=== PATIENT | female | born 1990 | race African-American/Black ===

== ENCOUNTER 2016-12-10 11:14 | Emergency (ER) | payer MEDICAID ==
[2016-12-10] MEDS ORDERED: MECLIZINE HCL 25 MG TABLET PO ONE ×2 (12:09→12:59)
--- NOTE | 2016-12-10 12:11 | ER Document Report ---
ED Medical Screen (RME) - General Chief Complaint: Dizziness Stated Complaint: EYE PROBLEM TRAVEL OUTSIDE OF THE [place] IN LAST 30 DAYS: No - HPI Patient complains to provider of: dizziness vision loss Notes: 12/10/16 12:09 Patient states chronic vision loss ongoing since August dizziness ongoing since August currently seen specialist who is requesting RPR HIV head CT Bre TB testing for possible retinal vasculitis states that she had a follow history day dizziness and symptoms have worsened the day also complaining of abdominal pain nonspecific no nausea no vomiting no fever - Related Data Allergies/Adverse Reactions: egg [Egg] Allergy (Intermediate, Verified 12/10/16 11:29) body swelling Shellfish * [Shellfish] Allergy (Verified 12/10/16 11:29) red food dye Allergy (Intermediate, Uncoded 12/10/16 11:29) body swelling string beans Allergy (Intermediate, Uncoded 12/10/16 11:29) body swelling Past Medical History Pulmonary Medical History: Reports: Hx Asthma Renal/ Medical History: Denies: Hx Peritoneal Dialysis Psychiatric Medical History: Reports: Hx Depression - psotpartum - Immunizations Immunizations up to date: Yes Hx Diphtheria, Pertussis, Tetanus Vaccination: Yes Review of Systems - Review of Systems EENT: Other - Vision loss dizziness Physical Exam - Vital signs Vitals: Temp Pulse Resp BP Pulse Ox 98.5 F 72 17 115/94 H 99 12/10/16 11:30 12/10/16 11:30 12/10/16 11:30 12/10/16 11:30 12/10/16 11:30 - HEENT Notes: Ocular motions intact pupils equal round reactive blinks to threatening motions on the right side Course - Vital Signs Vital signs: Temp Pulse Resp BP Pulse Ox 98.5 F 72 17 115/94 H 99 12/10/16 11:30 12/10/16 11:30 12/10/16 11:30 12/10/16 11:30 12/10/16 11:30
[2016-12-10 12:34] LABS: ABSOLUTE EOSINOPHILS # (AUTO) 0.2 10^3/uL (0.0-0.6); ABSOLUTE LYMPHOCYTES (AUTO) 2.3 10^3/uL (0.5-4.7); ABSOLUTE MONOCYTES (AUTO) 0.4 10^3/uL (0.1-1.4); ABSOLUTE NEUT (AUTO) 2.2 10^3/uL (1.7-8.2); BASOPHILS % (AUTO) 0.8 % (0-2); EOSINOPHILS % (AUTO) 4.1 % (0-6); HEMATOCRIT 37.4 % (36.0-47.0); HEMOGLOBIN 12.4 g/dL (12.0-15.5); HGB HCT DIFFERENCE -0.2; LYMPHOCYTES % (AUTO) 44.2 % (13-45); MEAN CORPUSCULAR HEMOGLOBIN 25.5 pg (27.0-33.4); MEAN CORPUSCULAR VOLUME 77 fl (80-97); MONOCYTES % (AUTO) 8.1 % (3-13); RED BLOOD COUNT 4.84 10^6/uL (3.72-5.28); RED CELL DISTRIBUTION WIDTH 15.5 % (11.5-14.0); SEGMENTED NEUTROPHILS % (AUTO) 42.8 % (42-78); WHITE BLOOD COUNT 5.2 10^3/uL (4.0-10.5)
[2016-12-10 12:56] LABS: ANION GAP 12 (5-19); BLOOD UREA NITROGEN 10 mg/dL (7-20); CALCIUM 9.9 mg/dL (8.4-10.2); CARBON DIOXIDE 26 mmol/L (22-30); CHLORIDE 105 mmol/L (98-107); CREATININE RESULT 0.74 mg/dL (0.52-1.25); GLUCOSE 84 mg/dL (75-110); MAGNESIUM 1.8 mg/dL (1.6-2.3); POTASSIUM 4.4 mmol/L (3.6-5.0); SODIUM 142.9 mmol/L (137-145)
--- NOTE | 2016-12-10 12:58 | ER Document Report ---
ED Dizziness/Weakness - General Time seen by provider: 12:50 Mode of Arrival: Ambulatory Information source: Patient TRAVEL OUTSIDE OF THE [place] IN LAST 30 DAYS: No - HPI Patient complains to provider of: Dizziness, Near-syncope Onset: Other - see HPI note Quality of pain: No pain Associated symptoms: Dizzy, Almost fainted, Nausea Exacerbated by: Change in position, Movement of head Baseline gait: Walks w/o assistance <SANDIP DE LEON - Last Filed: 12/10/16 13:12> <KAMILA RUIZ - Last Filed: 12/10/16 14:22> - General Chief Complaint: Dizziness Stated Complaint: EYE PROBLEM Notes: Patient is a 26 year old female presenting to the ED for dizziness, nausea, and feeling unbalanced. Patient has had these symptoms for the past 2 days. Patient has increased dizziness and room spinning sensation with movement of her head. Patient states she has fallen x2 and is leaning to the right when she walks. Patient has not experienced these symptoms before. Patient has had some chronic vision loss in her right eye that is being diagnosed and and evaluated at [place] with Dr. Edge. Patient has no medication allergies. (SANDIP DE LEON ) - Related Data Allergies/Adverse Reactions: egg [Egg] Allergy (Intermediate, Verified 12/10/16 11:29) body swelling Shellfish * [Shellfish] Allergy (Verified 12/10/16 11:29) red food dye Allergy (Intermediate, Uncoded 12/10/16 11:29) body swelling string beans Allergy (Intermediate, Uncoded 12/10/16 11:29) body swelling Past Medical History - General Information source: Patient - Social History Smoking Status: Never Smoker Cigarette use (# per day): No Frequency of alcohol use: None Drug Abuse: None Family History: Reviewed & Not Pertinent, DM, Malignancy Patient has suicidal ideation: No Patient has homicidal ideation: No Pulmonary Medical History: Reports: Hx Asthma EENT Medical History: Reports: Eyes - vision loss right eye Neurological Medical History: Reports: Hx Migraine Psychiatric Medical History: Reports: Hx Depression - Surgical Hx: Negative - Immunizations Immunizations up to date: Yes Hx Diphtheria, Pertussis, Tetanus Vaccination: Yes <SANDIP DE LEON - Last Filed: 12/10/16 13:12> Review of Systems - Review of Systems Constitutional: No symptoms reported EENT: No symptoms reported Cardiovascular: See HPI, Dizziness Respiratory: No symptoms reported Gastrointestinal: See HPI, Nausea Genitourinary: No symptoms reported Female Genitourinary: No symptoms reported Musculoskeletal: No symptoms reported Skin: No symptoms reported Hematologic/Lymphatic: No symptoms reported Neurological/Psychological: No symptoms reported -: Yes All other systems reviewed and negative <SANDIP DE LEON - Last Filed: 12/10/16 13:12> Physical Exam - Vital signs Interpretation: Normal - General General appearance: Appears well, Alert In distress: Mild - HEENT Head: Normocephalic, Atraumatic Eyes: Normal Conjunctiva: Normal Cornea: Normal Extraocular movements intact: Yes - lateral gaze nystagmus Eyelashes: Normal Pupils: PERRL Mucous membranes: Moist - Respiratory Respiratory status: No respiratory distress Chest status: Nontender - Cardiovascular Rhythm: Regular - Abdominal Inspection: Obese - Back Back: Normal, Nontender - Extremities General upper extremity: Normal inspection, Normal ROM, Normal strength General lower extremity: Normal inspection, Normal ROM, Normal strength. No: Edema - Neurological Neuro grossly intact: Yes Cognition: Normal Orientation: AAOx4 Jacob Coma Scale Eye Opening: Spontaneous [place] Coma Scale Verbal: Oriented Jacob Coma Scale Motor: Obeys Commands [place] Coma Scale Total: 15 Speech: Normal - Psychological Associated symptoms: Normal affect, Normal mood - Skin Skin Temperature: Warm Skin Moisture: Dry <SANDIP DE LEON - Last Filed: 12/10/16 13:12> <KAMILA RUIZ - Last Filed: 12/10/16 14:22> - Vital signs Vitals: Temp Pulse Resp BP Pulse Ox 98.5 F 72 17 115/94 H 99 12/10/16 11:30 12/10/16 11:30 12/10/16 11:30 12/10/16 11:30 12/10/16 11:30 Course - Laboratory Result Diagrams: 12/10/16 12:15 12/10/16 12:15 <LESATRICIASANDIP - Last Filed: 12/10/16 13:12> - Laboratory Result Diagrams: 12/10/16 12:15 12/10/16 12:15 - Diagnostic Test Radiology reviewed: Reports reviewed - CT of the head is read as normal - EKG Interpretation by Ne EKG shows normal: Sinus rhythm, [place], Intervals, QRS Complexes. abnormal: ST-T Waves - Borderline anterior T abnormalities Rate: Normal - 67 Rhythm: NSR <KAMILA RUIZ - Last Filed: 12/10/16 14:22> - Vital Signs Vital signs: Temp Pulse Resp BP Pulse Ox 98.5 F 72 17 115/94 H 99 12/10/16 11:30 12/10/16 11:30 12/10/16 11:30 12/10/16 11:30 12/10/16 11:30 - Laboratory Laboratory results interpreted by me: 12/10/16 12:15 MCV 77 L MCH 25.5 L RDW 15.5 H Discharge <SANDIP DE LEON - Last Filed: 12/10/16 13:12> <KAMILA RUIZ - Last Filed: 12/10/16 14:22> - Discharge Clinical Impression: Vertigo Condition: Stable Disposition: HOME, SELF-CARE Additional Instructions: Vertigo: You have experienced an episode of vertigo -- a whirling dizziness which may be accompanied by nausea and vomiting or staggering. Vertigo is often caused by an irritation of the inner ear, in which case it is called labyrinthitis. It can also be a symptom of a degenerating inner ear, nerve damage, or brain injury. Your physician has evaluated you to determine whether any further testing is necessary. Vertigo is often treated with dramamine or meclizine. These medications are helpful, but stronger medication may be needed if you are vomiting. Rest in bed. You should not drive or operate machinery until completely better. It may take one to three weeks for recovery. If there are new symptoms, such as decreased hearing or vision, severe headache, weakness or faintness, or confusion, call the physician. FOLLOW UP WITH YOUR DOCTOR IF NOT IMPROVING. Prescriptions: Meclizine HCl [Antivert 25 mg Tablet] 25 mg PO TID PRN #25 tablet PRN Reason: Scribe Attestation: 12/10/16 14:22 I personally performed the services described in the documentation, reviewed and edited the documentation which was dictated to the scribe in my presence, and it accurately records my words and actions. (KAMILA RUIZ) Scribe Documentation - Scribe Written by Scrmargi:: Sandip De Leon 12/10/16 13:10 acting as scribe for :: Ketan <SANDIP DE LEON - Last Filed: 12/10/16 13:12>
[2016-12-10 13:36] LABS: ADD ON TESTING BLD IN LAB ACKNOWLEDGE
[2016-12-10 13:50] LABS: APPEARANCE,URINE CLEAR; BILIRUBIN,URINE NEGATIVE (NEGATIVE); GLUCOSE, URINE NEGATIVE (NEGATIVE); KETONES,URINE NEGATIVE (NEGATIVE); LEUKOCYTE ESTERASE,URINE NEGATIVE (NEGATIVE); NITRITE,URINE NEGATIVE (NEGATIVE); PROTEIN,URINE NEGATIVE (NEGATIVE); URINE SPECIFIC GRAVITY 1.021; UROBILINOGEN,URINE NEGATIVE mg/dL (<2.0)
[2016-12-10 13:57] LABS: C-REACTIVE PROTEIN < 5.0 mg/L (<10.0)
[2016-12-10 15:18] LABS: URINE BARBITURATES SCREEN NEGATIVE; URINE METHADONE SCREEN NEGATIVE; URINE OPIATES LOW NEGATIVE; URINE PHENCYCLIDINE SCREEN NEGATIVE
[2016-12-10 16:03] VITALS: BP 116/80
--- NOTE | 2016-12-10 21:15 | EKG REPORT ---
SEVERITY:- BORDERLINE ECG - SINUS RHYTHM BORDERLINE T ABNORMALITIES, ANTERIOR LEADS : Confirmed by: Sharmaine Phelan MD 10-Dec-2016 21:14:17
== END 2016-12-10 14:30 | disposition home or self-care (01) ==
LOC: ER 11:14
DX: R42 Dizziness and giddiness (principal); R11.0 Nausea
CPT/HCPCS: 36415; 70450; 80048; 80307; 81001; 83735; 84702; 85025; 86140; 93005; 93010; 99284

== ENCOUNTER 2017-03-23 23:24 | Emergency (ER) | payer SELFPAY ==
[2017-03-23] MEDS ORDERED: ONDANSETRON HCL INJ/PF 4 MG/2 ML SDV IV ONE (23:40)
[2017-03-23] MEDS ORDERED: NORMAL SALINE 1000 ML 1,000 ML IV ONE (23:40)
[2017-03-24 00:23] LABS: ABSOLUTE BASOPHILS # (AUTO) 0.1 10^3/uL (0.0-0.2); ABSOLUTE EOSINOPHILS # (AUTO) 0.3 10^3/uL (0.0-0.6); ABSOLUTE MONOCYTES (AUTO) 0.6 10^3/uL (0.1-1.4); ABSOLUTE NEUT (AUTO) 3.2 10^3/uL (1.7-8.2); BASOPHILS % (AUTO) 0.9 % (0-2); EOSINOPHILS % (AUTO) 4.3 % (0-6); HEMATOCRIT 38.7 % (36.0-47.0); HEMOGLOBIN 12.6 g/dL (12.0-15.5); HGB HCT DIFFERENCE -0.9; LYMPHOCYTES % (AUTO) 41.6 % (13-45); MEAN CORPUSCULAR HEMOGLOBIN 25.3 pg (27.0-33.4); MEAN CORPUSCULAR HGB CONC 32.5 g/dL (32.0-36.0); MEAN CORPUSCULAR VOLUME 78 fl (80-97); MONOCYTES % (AUTO) 8.9 % (3-13); RED BLOOD COUNT 4.99 10^6/uL (3.72-5.28); SEGMENTED NEUTROPHILS % (AUTO) 44.3 % (42-78); WHITE BLOOD COUNT 7.2 10^3/uL (4.0-10.5)
[2017-03-24 00:26] LABS: APPEARANCE,URINE SLIGHTLY-CLOUDY; BILIRUBIN,URINE NEGATIVE (NEGATIVE); GLUCOSE, URINE NEGATIVE (NEGATIVE); KETONES,URINE NEGATIVE (NEGATIVE); LEUKOCYTE ESTERASE,URINE NEGATIVE (NEGATIVE); NITRITE,URINE NEGATIVE (NEGATIVE); PROTEIN,URINE NEGATIVE (NEGATIVE); URINE SPECIFIC GRAVITY 1.035; UROBILINOGEN,URINE NEGATIVE mg/dL (<2.0)
[2017-03-24 01:19] LABS: ALANINE AMINOTRANSFERASE 22 U/L (9-52); ALBUMIN 4.2 g/dL (3.5-5.0); ALKALINE PHOSPHATASE 65 U/L (38-126); ANION GAP 11 (5-19); ASPARTATE AMINO TRANSFERASE 16 U/L (14-36); BILIRUBIN,DIRECT 0.3 mg/dL (0.0-0.4); BILIRUBIN,TOTAL 0.4 mg/dL (0.2-1.3); BLOOD UREA NITROGEN 12 mg/dL (7-20); CALCIUM 9.1 mg/dL (8.4-10.2); CARBON DIOXIDE 24 mmol/L (22-30); CHLORIDE 108 mmol/L (98-107); CREATININE RESULT 1.01 mg/dL (0.52-1.25); GLUCOSE 73 mg/dL (75-110); POTASSIUM 3.7 mmol/L (3.6-5.0); SODIUM 143.2 mmol/L (137-145); TOTAL PROTEIN 7.6 g/dL (6.3-8.2)
--- NOTE | 2017-03-24 01:25 | ER Document Report ---
ED General - General Chief Complaint: Abdominal Pain Stated Complaint: VOMITING,DIARRHEA,ABDOMINAL PAIN Time Seen by Provider: 03/23/17 23:39 Notes: Patient is a 26-year-old female without past medical history who presents with multiple complaints. Her main concern is external vaginal irritation which she describes as a constant, burning pain that has been present for the past 2 days. States this started after she began using a new type of tampon during her most recent menstrual period and believes that this has triggered the symptoms. She also notes that she has had some intermittent abdominal cramping with associated diarrhea and vomiting that has now resolved. Patient has been able to tolerate oral intake today without difficulty. Denies a history of similar symptoms in the past. She has not seen her primary care doctor regarding today's concerns. TRAVEL OUTSIDE OF THE [place] IN LAST 30 DAYS: No - Related Data Allergies/Adverse Reactions: egg [Egg] Allergy (Intermediate, Verified 12/10/16 11:29) body swelling Shellfish * [Shellfish] Allergy (Verified 12/10/16 11:29) red food dye Allergy (Intermediate, Uncoded 12/10/16 11:29) body swelling string beans Allergy (Intermediate, Uncoded 12/10/16 11:29) body swelling Past Medical History - General Information source: Patient - Social History Smoking Status: Never Smoker Chew tobacco use (# tins/day): No Frequency of alcohol use: None Drug Abuse: None Lives with: Spouse/Significant other Family History: Reviewed & Not Pertinent, DM, Malignancy Patient has suicidal ideation: No Patient has homicidal ideation: No Pulmonary Medical History: Reports: Hx Asthma Neurological Medical History: Reports: Hx Migraine Renal/ Medical History: Denies: Hx Peritoneal Dialysis Psychiatric Medical History: Reports: Hx Depression - Past Surgical History: Reports: Hx Gynecologic Surgery - mirena removal - Immunizations Immunizations up to date: Yes Hx Diphtheria, Pertussis, Tetanus Vaccination: Yes Review of Systems - Review of Systems Notes: Constitutional: Negative for fever. HENT: Negative for sore throat. Eyes: Negative for visual changes. Cardiovascular: Negative for chest pain. Respiratory: Negative for shortness of breath. Gastrointestinal: Negative for abdominal pain, positive for vomiting and diarrhea now resolved Genitourinary: Negative for dysuria. Positive for vaginal irritation Musculoskeletal: Negative for back pain. Skin: Negative for rash. Neurological: Negative for headaches, weakness or numbness. 10 point ROS negative except as marked above and in HPI. Physical Exam - Vital signs Vitals: Temp Pulse Resp BP Pulse Ox 98.1 F 74 18 124/81 100 03/23/17 23:29 03/23/17 23:29 03/23/17 23:29 03/23/17 23:29 03/23/17 23:29 Interpretation: Normal Notes: PHYSICAL EXAMINATION: GENERAL: Well-appearing, well-nourished and in no acute distress. HEAD: Atraumatic, normocephalic. EYES: Pupils equal round and reactive to light, extraocular movements intact, sclera anicteric, conjunctiva are normal. ENT: nares patent, oropharynx clear without exudates. Moist mucous membranes. NECK: Normal range of motion, supple without lymphadenopathy LUNGS: Breath sounds clear to auscultation bilaterally and equal. No wheezes rales or rhonchi. HEART: Regular rate and rhythm without murmurs ABDOMEN: Soft, nontender, normoactive bowel sounds. No guarding, no rebound. No masses appreciated. : External vaginal exam reveals no significant erythema, discharge or bleeding. EXTREMITIES: Normal range of motion, no pitting or edema. No cyanosis. NEUROLOGICAL: No focal neurological deficits. Moves all extremities spontaneously and on command. PSYCH: Normal mood, normal affect. SKIN: Warm, Dry, normal turgor, no rashes or lesions noted. Course - Re-evaluation Re-evalutation: 03/24/17 01:23 Patient is complaining of vaginal irritation, external vaginal exam does not show any evidence of infection, erythema, and patient is declining formal pelvic exam which I think is appropriate given that her only complaint is mild external vaginal irritation. I suspect contact irritation from tampons that patient had been using during her menstrual cycle. Patient also complained of some nausea, vomiting and diarrhea that has now resolved and she has been able to tolerate oral intake for the past 24 hours without difficulty. She has absolutely no focal abdominal tenderness, rebound or guarding and her history does not suggest acute biliary pathology, pancreatitis, appendicitis, or acute ovarian torsion. No history suggesting obstruction or perforation. Patient was laughing and joking during exam. Laboratories are unremarkable. At this time I do not suspect any acute life-threatening pathology. At this time will discharge with return precautions and follow-up recommendations. Verbal discharge instructions given a the bedside and opportunity for questions given. Medication warnings reviewed. Patient is in agreement with this plan and has verbalized understanding of return precautions and the need for primary care follow-up in the next 24-72 hours. - Vital Signs Vital signs: Temp Pulse Resp BP Pulse Ox 98.1 F 74 18 124/81 100 03/23/17 23:29 03/23/17 23:29 03/23/17 23:29 03/23/17 23:29 03/23/17 23:29 - Laboratory Result Diagrams: 03/24/17 00:11 03/24/17 00:53 Laboratory results interpreted by me: 03/24/17 03/24/17 00:11 00:53 MCV 78 L MCH 25.3 L RDW 16.0 H Chloride 108 H Glucose 73 L Discharge - Discharge Clinical Impression: Vaginal irritation, Vomiting and diarrhea Condition: Good Disposition: HOME, SELF-CARE Additional Instructions: Your labs today are normal. The irritation to your vagina appears to be likely related to the tampons are using and should resolve in the next several days. Return for any additional concerns you may have.
[2017-03-24 01:42] VITALS: BP 108/68
== END 2017-03-24 01:43 | disposition home or self-care (01) ==
LOC: ER 23:24
DX: N76.0 Acute vaginitis (principal); R11.10 Vomiting, unspecified; R19.7 Diarrhea, unspecified; R10.9 Unspecified abdominal pain; Z91.012 Allergy to eggs; Z91.02 Food additives allergy status; Z91.013 Allergy to seafood; Z91.018 Allergy to other foods
CPT/HCPCS: 99284; 96361; 96374; 36415; 84703; 85025; 80053; 81001; J2405; J7030

== ENCOUNTER 2017-05-28 12:42 | Emergency (ER) | payer SELFPAY ==
[2017-05-28] MEDS ORDERED: MORPHINE SULFATE 10 MG/ML INJ IV ONE (12:58)
--- NOTE | 2017-05-28 13:08 | ER Document Report ---
ED Fall - General Stated Complaint: FALL BACK PAIN Time Seen by Provider: 05/28/17 12:58 Information source: Patient, Emergency Med Personnel Notes: Patient is a 26-year-old female that presents via EMS secondary to increased back pain causing her to fall backwards onto her back. Patient states she is a 7 year history of intermittent back pain. She states at times it "freezes up". Patient is on Flexeril for this pain. She has never seen a back specialist orthopedic surgeon. Patient denies any head trauma when she fell, neck pain, loss of consciousness. She denies any recent weakness of her legs no incontinence of urine. She denies any fevers or abdominal pain. She does state that the pain at baseline radiates down both of her legs. TRAVEL OUTSIDE OF THE [place] IN LAST 30 DAYS: No - HPI Occurred: Just prior to arrival Where: Home Context: Fell from standing Associated symptoms: None. denies: Lost consciousness, Dazed/confused Location of injury/pain: Back Quality of pain: [place] Severity: Moderate Pain Level: 3 Prehospital interventions: No: C-collar, Backboard - Related data Allergies/Adverse Reactions: egg [Egg] Allergy (Intermediate, Verified 12/10/16 11:29) body swelling Shellfish * [Shellfish] Allergy (Verified 12/10/16 11:29) red food dye Allergy (Intermediate, Uncoded 12/10/16 11:29) body swelling string beans Allergy (Intermediate, Uncoded 12/10/16 11:29) body swelling Home Medications: Current Home Medications Cyclobenzaprine HCl [Flexeril 10 mg Tablet] 10 mg PO TID 05/28/17 [History] Past Medical History - General Information source: Patient - Social History Smoking Status: Unknown if Ever Smoked Cigarette use (# per day): No Chew tobacco use (# tins/day): No Smoking Education Provided: No Frequency of alcohol use: None Drug Abuse: None Family History: Reviewed & Not Pertinent, DM, Malignancy Pulmonary Medical History: Reports: Hx Asthma Neurological Medical History: Reports: Hx Migraine Renal/ Medical History: Denies: Hx Peritoneal Dialysis Psychiatric Medical History: Reports: Hx Depression - Past Surgical History: Reports: Hx Gynecologic Surgery - mirena removal - Immunizations Immunizations up to date: Yes Hx Diphtheria, Pertussis, Tetanus Vaccination: Yes Review of Systems - Review of Systems Constitutional: denies: Fever Cardiovascular: denies: Chest pain, Palpitations Respiratory: denies: Short of breath Gastrointestinal: denies: Vomiting Musculoskeletal: denies: Leg swelling Neurological/Psychological: Other - no slurred speech. denies: Confusion, Weakness, Gait changes, Loss of power -: Yes All other systems reviewed and negative Physical Exam - Vital signs Vitals: Temp Pulse Resp BP Pulse Ox 97.9 F 72 16 120/75 96 05/28/17 12:51 05/28/17 12:51 05/28/17 12:51 05/28/17 12:51 05/28/17 12:51 Notes: Reviewed vital signs and nursing note as charted by RN. CONSTITUTIONAL: Alert and oriented and responds appropriately to questions. Well -appearing; well-nourished HEAD: Normocephalic; atraumatic EYES: PERRL NECK: Supple without meningismus; non-tender CARD: Regular rate and rhythm; no murmurs RESP: Normal chest excursion without splinting or tachypnea; breath sounds clear and equal bilaterally ABD/GI: Normal bowel sounds; non-distended; soft, non-tender BACK: The back appears normal. Tenderness to palpation along the midline lumbar spine as well as the paraspinal muscular regions. There is no swelling or step-offs noted EXT: Normal ROM in all joints; non-tender to palpation; no cyanosis, no effusions, no edema SKIN: Normal color for age and race; warm; dry; good turgor NEURO: CN II through XII are intact; moves all extremities equally; patient has 5 out of 5 bilateral plantar extension foot flexion. Positive straight leg test bilaterally. 2 plus patellar reflexes bilaterally PSYCH: The patient's mood and manner are appropriate. Grooming and personal hygiene are appropriate. Course - Re-evaluation Re-evalutation: 05/28/17 13:08 Given the above history and physical examination, status post fall, I will obtain x-ray imaging of the lumbar spine. Patient states that she is not and is willing to sign a documentation that the x-ray performed without test prior to the imaging. Given the normal reflexes, history of chronic back pain, no weakness or numbness reported by the patient either subjectively or objectively, no incontinence, no signs or symptoms of spinal infection, I believe acute cord compression to be unlikely. 05/28/17 15:02 X-rays recorded. I spoke to the radiologist he states he cannot completely rule out a coccyx fracture given the location, I do not believe further imaging is necessary at this time. I will provide pain medications and strict return precautions and follow-up with orthopedics. - Vital Signs Vital signs: Temp Pulse Resp BP Pulse Ox 97.9 F 72 16 120/75 96 05/28/17 12:51 05/28/17 12:51 05/28/17 12:51 05/28/17 12:51 05/28/17 12:51 Discharge - Discharge Clinical Impression: Accidental fall Qualifiers: Encounter type: initial encounter Qualified Code(s): W19.XXXA - Unspecified fall, initial encounter Lumbar back pain Qualifiers: Chronicity: acute Back pain laterality: unspecified Sciatica presence: with sciatica Sciatica laterality: bilateral sciatica Qualified Code(s): M54.42 - Lumbago with sciatica, left side; M54.41 - Lumbago with sciatica, right side Condition: Good Disposition: HOME, SELF-CARE Additional Instructions: Comeback immediately for any weakness or numbness of the legs, incontinence of stool or urine, fevers, or any other acute problems. Please follow-up with orthopedics as we have discussed and provided for you. Prescriptions: Hydrocodone/Acetaminophen [[place] 5-325 Tablet] 1 each PO Q6 PRN #12 tablet PRN Reason: For Pain Referrals: KEVIN DELVALLE FNP-C [Primary Care Provider] - Follow up as needed DANIELA CARBONE DO [ACTIVE STAFF] - Follow up as needed
--- NOTE | 2017-05-28 14:54 | RADIOLOGY REPORT (SQ) ---
EXAM DESCRIPTION: L SPINE WHOLE COMPLETED DATE/TIME: 05/28/2017 2:45 pm REASON FOR STUDY: 13hw, s/p fall COMPARISON: None. NUMBER OF VIEWS: Five views including obliques. TECHNIQUE: AP, lateral, oblique, and sacral radiographic images acquired of the lumbar spine. LIMITATIONS: None. FINDINGS: MINERALIZATION: Normal. SEGMENTATION: Normal. No transitional anatomy. ALIGNMENT: Normal. VERTEBRAE: Maintained height. No fracture or worrisome bone lesion. DISCS: Preserved height. No significant osteophytes or end plate irregularity. POSTERIOR ELEMENTS: Pedicles and facets are intact. No pars defect or posterior arch defects. HARDWARE: None in the spine. PARASPINAL SOFT TISSUES: Normal. PELVIS: Intact as visualized. No fractures or worrisome bone lesions. SI joints intact. OTHER: On the lateral sacral image there is posterior displacement of the lower coccygeal segments. IMPRESSION: NORMAL 5 VIEW LUMBAR SPINE. POSTERIOR DISPLACEMENT OF THE LOWER COCCYGEAL SEGMENTS. UNKNOWN IF THIS IS A CHRONIC FINDING OR COUL D BE RELATED TO ACUTE INJURY. TECHNICAL DOCUMENTATION: JOB ID: [id number] [employer]- All Rights Reserved
[2017-05-28 15:49] VITALS: BP 122/80
== END 2017-05-28 15:41 | disposition home or self-care (01) ==
LOC: ER 12:42
DX: M54.41 Lumbago with sciatica, right side (principal); M54.42 Lumbago with sciatica, left side; W19.XXXA Unspecified fall, initial encounter; Y93.89 Activity, other specified; Y92.009 Unspecified place in unspecified non-institutional (private) residence as the place of occurrence of the external cause; J45.909 Unspecified asthma, uncomplicated; Z79.899 Other long term (current) drug therapy; Z91.012 Allergy to eggs; Z91.013 Allergy to seafood; Z91.018 Allergy to other foods
CPT/HCPCS: 99283; 96374; 72110; J2270

== ENCOUNTER 2018-08-23 22:53 | Emergency (ER) | payer SELFPAY ==
[2018-08-23 23:33] LABS: HEMATOCRIT 40.2 % (36.0-47.0); HEMOGLOBIN 13.2 g/dL (12.0-15.5); MEAN CORPUSCULAR HEMOGLOBIN 26.2 pg (27.0-33.4); MEAN CORPUSCULAR HGB CONC 32.8 g/dL (32.0-36.0); MEAN CORPUSCULAR VOLUME 80 fl (80-97); PLATELET COUNT 277 10^3/uL (150-450); RED BLOOD COUNT 5.04 10^6/uL (3.72-5.28); RED CELL DISTRIBUTION WIDTH 15.2 % (11.5-14.0)
[2018-08-23 23:44] LABS: RBCS (WET MOUNT) NO RBCS SEEN; T.VAGINALIS (WET MOUNT) NO TRICHOMONAS SEEN; WBCS (WET MOUNT) FEW WBCS SEEN; YEAST (WET MOUNT) NO YEAST SEEN
[2018-08-23 23:47] LABS: ANION GAP 6 (5-19); BLOOD UREA NITROGEN 10 mg/dL (7-20); CALCIUM 9.5 mg/dL (8.4-10.2); CARBON DIOXIDE 28 mmol/L (22-30); CHLORIDE 106 mmol/L (98-107); GLUCOSE 85 mg/dL (75-110); POTASSIUM 4.2 mmol/L (3.6-5.0); SODIUM 139.6 mmol/L (137-145)
[2018-08-23 23:48] LABS: APPEARANCE,URINE SLIGHTLY-CLOUDY; BILIRUBIN,URINE NEGATIVE (NEGATIVE); COLOR,URINE YELLOW; GLUCOSE, URINE NEGATIVE (NEGATIVE); KETONES,URINE TRACE mg/dL (NEGATIVE); LEUKOCYTE ESTERASE,URINE NEGATIVE (NEGATIVE); NITRITE,URINE NEGATIVE (NEGATIVE); PROTEIN,URINE NEGATIVE (NEGATIVE); URINE SPECIFIC GRAVITY 1.032
--- NOTE | 2018-08-24 00:43 | ER Document Report ---
ED General - General Chief Complaint: Vaginal Bleeding Stated Complaint: VAGINAL BLEEDING Time Seen by Provider: 08/23/18 23:11 Notes: Patient is a 27-year-old female without chronic medical problems who presents with several days of skin irritation around her external vagina. The patient is reportedly concerned about the possibility that her ex- could have had transmitted HPV or an alternative sexually transmitted infection. She describes the area as having a burning, stinging, constant irritation. She states that it is been there for at least several weeks but has become more irritated and began bleeding in the past several days. She has not seen her primary care doctor regarding today's concerns. She has not trying to try to improve her symptoms. She is uncertain if anything seems to worsen her symptoms. She denies dysuria, fever or constitutional symptoms. TRAVEL OUTSIDE OF THE [place] IN LAST 30 DAYS: No - Related Data Allergies/Adverse Reactions: egg [Egg] Allergy (Intermediate, Verified 12/10/16 11:29) body swelling Shellfish * [Shellfish] Allergy (Verified 12/10/16 11:29) red food dye Allergy (Intermediate, Uncoded 12/10/16 11:29) body swelling string beans Allergy (Intermediate, Uncoded 12/10/16 11:29) body swelling Past Medical History - General Information source: Patient - Social History Smoking Status: Never Smoker Chew tobacco use (# tins/day): No Frequency of alcohol use: None Drug Abuse: None Lives with: Family Family History: Reviewed & Not Pertinent, DM, Malignancy Patient has suicidal ideation: No Patient has homicidal ideation: No Pulmonary Medical History: Reports: Hx Asthma Neurological Medical History: Reports: Hx Migraine Renal/ Medical History: Denies: Hx Peritoneal Dialysis Psychiatric Medical History: Reports: Hx Depression - Past Surgical History: Reports: Hx Gynecologic Surgery - mirena removal - Immunizations Immunizations up to date: Yes Hx Diphtheria, Pertussis, Tetanus Vaccination: Yes Review of Systems - Review of Systems Notes: Constitutional: Negative for fever. HENT: Negative for sore throat. Eyes: Negative for visual changes. Cardiovascular: Negative for chest pain. Respiratory: Negative for shortness of breath. Gastrointestinal: Negative for abdominal pain, vomiting or diarrhea. Genitourinary: Positive for external vaginal irritation Musculoskeletal: Negative for back pain. Skin: Negative for rash. Neurological: Negative for headaches, weakness or numbness. 10 point ROS negative except as marked above and in HPI. Physical Exam - Vital signs Vitals: Temp Pulse Resp BP Pulse Ox 98 F 94 16 127/81 H 98 08/23/18 22:54 08/23/18 22:54 08/23/18 22:54 08/23/18 22:54 08/23/18 22:54 Interpretation: Normal Notes: PHYSICAL EXAMINATION: GENERAL: Well-appearing, well-nourished and in no acute distress. HEAD: Atraumatic, normocephalic. EYES: Pupils equal round and reactive to light, extraocular movements intact, sclera anicteric, conjunctiva are normal. ENT: nares patent, oropharynx clear without exudates. Moist mucous membranes. NECK: Normal range of motion, supple without lymphadenopathy LUNGS: Breath sounds clear to auscultation bilaterally and equal. No wheezes rales or rhonchi. HEART: Regular rate and rhythm without murmurs ABDOMEN: Soft, nontender, normoactive bowel sounds. No guarding, no rebound. No masses appreciated. : There are several raised papules below the level of the inferior aspect of the external vaginal canal EXTREMITIES: Normal range of motion, no pitting or edema. No cyanosis. NEUROLOGICAL: No focal neurological deficits. Moves all extremities spontaneously and on command. PSYCH: Normal mood, normal affect. SKIN: Warm, Dry, normal turgor, no rashes or lesions noted. Course - Re-evaluation Re-evalutation: 08/24/18 03:41 Presentation appears most consistent with minor skin irritation just below the level of the vagina. Not consistent with herpetic or HPV lesions. Labs and STI testing are otherwise unremarkable. I have advised the patient on barrier creams and usage of loose fitting clothing. At this time will discharge with return precautions and follow-up recommendations. Verbal discharge instructions given a the bedside and opportunity for questions given. Medication warnings reviewed. Patient is in agreement with this plan and has verbalized understanding of return precautions and the need for primary care follow-up in the next 24-72 hours. - Vital Signs Vital signs: Temp Pulse Resp BP Pulse Ox 97.8 F 84 16 113/78 99 08/24/18 01:09 08/24/18 01:09 08/24/18 01:09 08/24/18 01:09 08/24/18 01:09 - Laboratory Result Diagrams: 08/23/18 23:20 08/23/18 23:20 Laboratory results interpreted by me: 08/23/18 08/23/18 23:20 23:26 MCH 26.2 L RDW 15.2 H Urine Ketones TRACE H Urine Urobilinogen 2.0 H Discharge - Discharge Clinical Impression: Perineal discomfort in female, Skin irritation Condition: Good Disposition: HOME, SELF-CARE Additional Instructions: You should cover the affected area with a barrier cream such as zinc oxide or petroleum to prevent further irritation. Your labs and exam are otherwise normal and do not suggest a sexually transmitted infection currently. Return for any additional concerns he may have including spreading redness from the area, worsening pain, fever greater than 100.4 F, or any other symptoms that are worrisome to you. Referrals: KEVIN DELVALLE, [facility] [Primary Care Provider] - Follow up as needed
[2018-08-24 01:09] LABS: CHLAM PCR NOT DETECTED (NOT DETECT); GON PCR NOT DETECTED (NOT DETECT)
[2018-08-24 01:11] VITALS: BP 113/78
== END 2018-08-24 01:11 | disposition home or self-care (01) ==
LOC: ER 22:53
DX: N93.8 Other specified abnormal uterine and vaginal bleeding (principal); L98.9 Disorder of the skin and subcutaneous tissue, unspecified; Z91.012 Allergy to eggs; Z91.02 Food additives allergy status; Z91.013 Allergy to seafood
CPT/HCPCS: 36415; 80048; 81001; 84703; 85027; 87210; 87491; 87591; 99284

== ENCOUNTER 2018-12-05 09:11 | Emergency (ER) | payer SELFPAY ==
--- NOTE | 2018-12-05 09:40 | ER Document Report ---
ED Medical Screen (RME) - General Chief Complaint: Breast Problem Stated Complaint: BREAST PAIN Time Seen by Provider: 12/05/18 09:20 Primary Care Provider: KEVIN DEVLALLE FNP-C [Primary Care Provider] - Follow up as needed Notes: Patient is a 28-year-old female that presents to the emergency department for chief complaint of left breast pain. Patient reports that for the past couple days she is been having fullness and tenderness to her left breast, she did have some yellow discharge from, the nipples been tender as well, she states the whole breast felt firm, and has released some, she felt a hard nodule on the lateral side of her breast as well, reports family history of breast cancer is concerned about this as well.. ROS: Other than noted above, the 12 point review of systems was reviewed with the patient and were negative, all pertinent findings are included in the HPI. PHYSICAL EXAMINATION: Vital signs reviewed. GENERAL: Well-appearing, well-nourished and in no acute distress. HEAD: Atraumatic, normocephalic. EYES: Pupils equal round extraocular movements intact, conjunctiva are normal. ENT: Nares patent NECK: Normal range of motion CV: Heart regular rate and rhythm LUNGS: No respiratory distress Musculoskeletal: Normal range of motion NEUROLOGICAL: Normal speech PSYCH: Normal mood, normal affect. MDM: Patient seen and examined for rapid initial assessment. Vital signs reviewed. A comprehensive ED assessment and evaluation of the patient, analysis of test results and completion of the medical decision making process will be conducted by additional ED providers. *Note is created using voice recognition software and may contain spelling, syntax or grammatical errors. TRAVEL OUTSIDE OF THE [place] IN LAST 30 DAYS: No - Related Data Allergies/Adverse Reactions: egg [Egg] Allergy (Intermediate, Verified 12/05/18 09:15) body swelling Shellfish * [Shellfish] Allergy (Verified 12/05/18 09:15) red food dye Allergy (Intermediate, Uncoded 12/05/18 09:15) body swelling string beans Allergy (Intermediate, Uncoded 12/05/18 09:15) body swelling Past Medical History - Social History Chew tobacco use (# tins/day): No Frequency of alcohol use: None Drug Abuse: None Pulmonary Medical History: Reports: Hx Asthma Neurological Medical History: Reports: Hx Migraine Renal/ Medical History: Denies: Hx Peritoneal Dialysis Psychiatric Medical History: Reports: Hx Depression - Past Surgical History: Reports: Hx Gynecologic Surgery - mirena removal - Immunizations Immunizations up to date: Yes Hx Diphtheria, Pertussis, Tetanus Vaccination: Yes Physical Exam - Vital signs Vitals: Temp Pulse Resp BP Pulse Ox 98.7 F 81 18 134/82 H 99 12/05/18 09:17 12/05/18 09:17 12/05/18 09:17 12/05/18 09:17 12/05/18 09:17 Course - Vital Signs Vital signs: Temp Pulse Resp BP Pulse Ox 98.7 F 81 18 134/82 H 99 12/05/18 09:17 12/05/18 09:17 12/05/18 09:17 12/05/18 09:17 12/05/18 09:17 Doctor's Discharge - Discharge Referrals: KEVIN DELVALLE FNP-C [Primary Care Provider] - Follow up as needed
[2018-12-05] MEDS ORDERED: IBUPROFEN 600 MG TABLET PO ONE (10:17)
--- NOTE | 2018-12-05 10:17 | ER Document Report ---
ED General - General Chief Complaint: Breast Problem Stated Complaint: BREAST PAIN Time Seen by Provider: 12/05/18 09:20 Primary Care Provider: KEVIN DELVALLE FNP-C [COMMUNITY BASED STAFF] - Follow up as needed TRAVEL OUTSIDE OF THE [place] IN LAST 30 DAYS: No - HPI Notes: Patient is a 28-year-old female that presents to the emergency department for chief complaint of left breast pain. Patient reports 4 days of increased pain in her left breast. Yesterday she noticed some purulent drainage from her nipple. She denies any fevers or chills. She states that most of the females on her mother's side have breast cancer which she is concerned about. She has not had genetic testing. She did have a normal mammogram 2 years ago. Patient states she thought she felt a knot or lump in her left breast yesterday but she cannot find that area today. She denies injury to the area. She is not actively breast-feeding Past Medical History: Negative Past Surgical History: Negative Social History: Denies drugs alcohol and tobacco Family History: Reviewed and noncontributory for presenting illness Allergies: Reviewed, see documented allergy list. REVIEW OF SYSTEMS: CONSTITUTIONAL : No fever No chills No diaphoresis No recent illness EENT: No vision changes No congestion No sore throat CARDIOVASCULAR: No chest pain No palpitations RESPIRATORY: No shortness of breath No cough No difficulty breathing GASTROINTESTINAL: No abdominal pain No nausea No vomiting No diarrhea GENITOURINARY: Left breast pain No dysuria No hematuria No difficulty urinating MUSCULOSKELETAL: No back pain No leg pain No arm pain SKIN: No rashes No lesions LYMPHATIC: No swollen, enlarged glands. NEUROLOGICAL: No lightheadedness No headache No weakness No paresthesias PSYCHIATRIC: No anxiety No depression PHYSICAL EXAMINATION: Vital signs reviewed, nursing noted reviewed. GENERAL: Well-appearing, well-nourished and in no acute distress. HEAD: Atraumatic, normocephalic. EYES: Eyes appear normal, extraocular movements intact, sclera anicteric, conjunctiva are normal. ENT: nares patent, oropharynx clear without exudates. Moist mucous membranes. NECK: Normal range of motion, supple without lymphadenopathy LUNGS: Breath sounds clear to auscultation bilaterally and equal. No wheezes rales or rhonchi. Chest wall: Left breast edema and diffuse tenderness with no erythema. No purulence expressed from nipple. No areas of fluctuance appreciated. Skin appears normal HEART: Regular rate and rhythm without murmurs ABDOMEN: Soft, nontender, normoactive bowel sounds. No rebound, guarding, or rigidity. No masses appreciated. EXTREMITIES: Nontender, good range of motion, no pitting or edema. NEUROLOGICAL: No focal neurological deficits. Moves all extremities spontaneously Motor and sensory grossly intact on exam. PSYCH: Normal mood, normal affect. SKIN: Warm, Dry, normal turgor, no rashes or lesions noted on exposed skin - Related Data Allergies/Adverse Reactions: egg [Egg] Allergy (Intermediate, Verified 12/05/18 09:15) body swelling Shellfish * [Shellfish] Allergy (Verified 12/05/18 09:15) red food dye Allergy (Intermediate, Uncoded 12/05/18 09:15) body swelling string beans Allergy (Intermediate, Uncoded 12/05/18 09:15) body swelling Past Medical History - Social History Smoking Status: Never Smoker Chew tobacco use (# tins/day): No Frequency of alcohol use: None Drug Abuse: None Family History: Reviewed & Not Pertinent, DM, Malignancy Patient has suicidal ideation: No Patient has homicidal ideation: No Pulmonary Medical History: Reports: Hx Asthma Neurological Medical History: Reports: Hx Migraine Renal/ Medical History: Denies: Hx Peritoneal Dialysis Psychiatric Medical History: Reports: Hx Depression - Past Surgical History: Reports: Hx Gynecologic Surgery - mirena removal - Immunizations Immunizations up to date: Yes Hx Diphtheria, Pertussis, Tetanus Vaccination: Yes Physical Exam - Vital signs Vitals: Temp Pulse Resp BP Pulse Ox 98.7 F 81 18 134/82 H 99 12/05/18 09:17 12/05/18 09:17 12/05/18 09:17 12/05/18 09:17 12/05/18 09:17 Course - Re-evaluation Re-evalutation: 12/05/18 10:16 Vitals reviewed. Nursing notes reviewed. Patient given Motrin for pain. She has pretty exquisite tenderness to her left breast and ultrasound will be obtained to evaluate for possible underlying abscess. Her overlying skin appears normal and I do not see any areas of cellulitis. 12/05/18 13:44 Patient's ultrasound shows no abscess formation. Her symptoms are consistent with acute mastitis and she will be started on Bactrim. Patient does have a family history of breast cancer which is significant and I advised her to follow closely with [facility] to assure resolution of her mastitis and to obtain outpatient mammogram. Patient counseled on return precautions and verbalized understanding. She is stable at discharge. - Vital Signs Vital signs: Temp Pulse Resp BP Pulse Ox 98.7 F 81 18 134/82 H 99 12/05/18 09:17 12/05/18 09:17 12/05/18 09:17 12/05/18 09:12/05/18 09:17 - Diagnostic Test Radiology reviewed: Image reviewed Discharge - Discharge Clinical Impression: Mastitis Condition: Stable Disposition: HOME, SELF-CARE Instructions: Mastitis ([facility]) Additional Instructions: Please return to the emergency department if you have any worsening, or concern of your symptoms. Please return to the emergency department if you develop chest pain, difficulty breathing, severe abdominal pain, or ongoing vomiting. Please follow-up with your primary care physician in 2-3 days and any other recommended physicians. If prescribed, take all medications as directed. If you have any questions or concerns do not hesitate to return the emergency department for evaluation. Please return to the emergency room if you have any fevers, increasing redness, swelling or pain in your left breast. Follow with [facility] to obtain an outpatient mammogram Prescriptions: Naproxen 500 mg PO BID PRN #30 tablet PRN Reason: Pain Scale Of 1 Sulfamethoxazole/Trimethoprim [Bactrim Ds Tablet] 1 each PO BID #28 tablet Referrals: KEVIN DELVALLE FNP-C [COMMUNITY BASED STAFF] - Follow up as needed [facility] [Provider Group] - Follow up in 3-5 days
[2018-12-05] MEDS ORDERED: SULFAMETHOXAZOLE/TRIMETHOPRIM 800-160 MG TABLET PO ONE (13:42)
[2018-12-05 13:57] VITALS: BP 117/69
--- NOTE | 2018-12-05 14:02 | RADIOLOGY REPORT (SQ) ---
EXAM DESCRIPTION: U/S BREAST UNILATERAL LIMITED COMPLETED DATE/TIME: 12/05/2018 1:37 pm REASON FOR STUDY: Left breast swelling tenderness, abscess COMPARISON: None TECHNIQUE: Patient presents today with left breast pain to the emergency room. Patient states the l eft breast pain was excruciating 3 days ago and has improved somewhat since then. Entire left breast ultrasound was performed by me as well as the technologist, with comparison right breast ultrasound imaging. Selected color doppler/spectral images saved to PACS. LIMITATIONS: None. FINDINGS: Masses:No cystic or solid masses identified Architecture:No alteration of normal morphology. No skin thickening. No edema. Other: On the left side, mildly prominent retroareolar ducts are present, symmetric with the right br east. Left axilla ultrasound was performed. No enlarged lymph nodes. No cystic or solid lesions. IMPRESSION: No suspicious findings detected by ultrasound. BIRAD: 1 Negative. RECOMMENDATION: RECOMMENDED FOLLOW-UP: Follow-up as clinically indicated. This report was discusse d with Dr. Cotto in the emergency room. Patient will be treated with antibiotics for mastitis. COMMENT: The [employer] ([employer]) has developed recommendations for screening MRI of the breasts in certain patient populations, to be used in conjunction with mammography. Breast MRI s urveillance may be appropriate for women with more than 20% lifetime risk of developing breast cancer as determined by genetic testing, significant family history of the disease, or history of mantle r adiation for Hodgkins Disease. [employer] Practice Guidelines 2008. TECHNICAL DOCUMENTATION: FINDING NUMBER: (1) ASSESSMENT: (1) JOB ID: [id number] [employer]- All Rights Reserved Reading location - IP/workstation name: [email or web address]
== END 2018-12-05 13:56 | disposition home or self-care (01) ==
LOC: ER 09:11
DX: N61.0 Mastitis without abscess (principal); N64.4 Mastodynia; J45.909 Unspecified asthma, uncomplicated
CPT/HCPCS: 76642; 99283

== ENCOUNTER 2020-08-16 01:10 | Emergency (ER) | payer BC, MEDICAID ==
[2020-08-16 01:17] VITALS: BP 134/90
[2020-08-16 03:20] LABS: ABSOLUTE BASOPHILS # (AUTO) 0.1 10^3/uL (0.0-0.2); ABSOLUTE EOSINOPHILS # (AUTO) 0.4 10^3/uL (0.0-0.6); ABSOLUTE LYMPHOCYTES (AUTO) 2.3 10^3/uL (0.5-4.7); ABSOLUTE MONOCYTES (AUTO) 0.5 10^3/uL (0.1-1.4); ABSOLUTE NEUT (AUTO) 3.2 10^3/uL (1.7-8.2); BASOPHILS % (AUTO) 2.1 % (0-2); EOSINOPHILS % (AUTO) 6.8 % (0-6); HEMATOCRIT 35.6 % (36.0-47.0); HEMOGLOBIN 11.7 g/dL (12.0-15.5); LYMPHOCYTES % (AUTO) 34.6 % (13-45); MEAN CORPUSCULAR HEMOGLOBIN 26.1 pg (27.0-33.4); MEAN CORPUSCULAR HGB CONC 32.9 g/dL (32.0-36.0); MEAN CORPUSCULAR VOLUME 79 fl (80-97); MONOCYTES % (AUTO) 8.2 % (3-13); PLATELET COUNT 261 10^3/uL (150-450); RED BLOOD COUNT 4.48 10^6/uL (3.72-5.28); RED CELL DISTRIBUTION WIDTH 14.7 % (11.5-14.0); SEGMENTED NEUTROPHILS % (AUTO) 48.3 % (42-78); TOTAL CELLS COUNTED % (AUTO) 100 %; WHITE BLOOD COUNT 6.6 10^3/uL (4.0-10.5)
[2020-08-16 03:42] LABS: ANION GAP 6 (5-19); BLOOD UREA NITROGEN 11 mg/dL (7-20); CALCIUM 9.1 mg/dL (8.4-10.2); CARBON DIOXIDE 25 mmol/L (22-30); CHLORIDE 106 mmol/L (98-107); GLUCOSE 93 mg/dL (75-110)
--- NOTE | 2020-08-16 08:17 | EKG REPORT ---
SEVERITY:- BORDERLINE ECG - SINUS RHYTHM BORDERLINE T ABNORMALITIES, ANTERIOR LEADS : Confirmed by: Valentino Dumont 16-Aug-2020 08:16:51
== END 2020-08-16 06:14 | disposition left against medical advice (07) ==
LOC: ER 01:10
DX: Z53.21 Procedure and treatment not carried out due to patient leaving prior to being seen by health care provider (principal); M54.2 Cervicalgia
CPT/HCPCS: 36415; 80048; 85025; 87070; 87880; 93005; 93010